=== PATIENT | male | born 2000 | race African-American/Black ===

== ENCOUNTER 2022-07-06 15:53 | Emergency (ER) | payer SELFPAY ==
[2022-07-06 16:07] VITALS: BP 123/65; PULSE 62; RESP 16; TEMP 37.2; O2SAT 100
--- NOTE | 2022-07-06 16:24 | ED.NECK ---
HPI - Neck Pain/Injury General Chief Complaint: Neck Pain/Injury Stated Complaint: Neck pain Time Seen by Provider: 07/06/22 16:24 Source: patient Mode of arrival: ambulatory Limitations: no limitations History of Present Illness HPI Narrative: 21-year-old male presented for complaint of right neck pain, since yesterday. He states he was playing rough with his friends. Woke this morning with more pain. Worse when he turns his head to the right. Denies decreased ROM, numbness, tingling, weakness of the upper extremities. Took Tylenol today. Rates 12/29. Requesting work note. Related Data Allergies Allergy/AdvReac Type Severity Reaction Status Date / Time No Known Allergies Allergy Verified 07/06/22 16:38 Review of Systems Review of Systems: CONSTITUTIONAL: Denies body aches, fever, chills CARDIOVASCULAR: Denies chest pain, palpitations, or edema. RESPIRATORY: Denies cough or dyspnea. SKIN: Denies rash, itching, or wounds. MUSCULOSKELETAL: Denies back pain, joint pain, or myalgia. NEUROLOGIC: Denies headache, numbness, tingling, or weakness. All systems reviewed & are unremarkable except as noted in HPI and below PMFSH Comments At time of signature, I have reviewed and agree with nursing past medical, surgical, social and family history unless otherwise noted. Please see nursing chart for further information. There is no relevant family history pertinent to the presenting complaint Exam Narrative: GENERAL: Well-appearing CHEST: Speaks in full sentences. No respiratory distress. HEART: Regular rate and rhythm. Normal and equal peripheral pulses. MUSC: Bilateral Upper ext's normal strength and sensation, normal range of motion. No vertebral point tenderness. Full ROM to neck. No open wounds; alignment normal, pulse palpable and equal bilaterally, skin warm, dry, pink. Capillary refill less than 3 seconds. SKIN: Warm, dry, no rash. NEURO: Alert and oriented x3. PSYCH: Normal mood and affect Course Course Emergency Course: Patient is aware of diagnosis, understands and agrees to treatment plan. Anticipatory guidance given. Patient agrees to follow-up as directed and is aware of reasons to seek care at the emergency department. Portions of this record may have been created with voice recognition software Level of Care: Express Care Visit Vital Signs Vital signs: Vital Signs Temperature 98.9 F 07/06/22 16:07 Pulse Rate 62 07/06/22 16:07 Respiratory Rate 16 07/06/22 16:07 Blood Pressure 123/65 07/06/22 16:07 Pulse Oximetry 100 07/06/22 16:07 Oxygen Delivery Room Air 07/06/22 16:07 Temperature 98.9 F 07/06/22 16:07 Pulse Rate 62 07/06/22 16:07 Respiratory Rate 16 07/06/22 16:07 Blood Pressure 123/65 07/06/22 16:07 Pulse Oximetry 100 07/06/22 16:07 Oxygen Delivery Room Air 07/06/22 16:07 Reviewed MDM - Neck Pain/Injury MDM Narrative Medical decision making narrative: Neck pain appears musculoskeletal in nature. No indication for imaging. He is well-appearing. Requesting work note. Advised supportive measures and signs/symptoms to go to the ER. Pt is appropriate for outpt treatment and f/u. Differential Diagnosis Differential diagnosis: Likely disc disorder of cervical region, whiplash injury to neck, cervical radiculopathy and strain of neck muscle Discharge Plan Discharge Clinical Impression: Strain of neck muscle Patient Disposition: Home, Self-Care Condition: Stable Instructions: Acute Neck Pain (ED) Additional Instructions: Rest. Avoid pushing, pulling, lifting or anything that worsens the symptoms Tylenol 1000mg every 8 hours as needed You can alternate with ibuprofen 600mg Alternate ice/heat to the site. Lidocaine or salon pas pain patch or use pain cream like icy/hot or biofreeze Follow up with your primary care provider as needed in 1 week Go to the ER for worsening symptoms or concerns. Follow-up/Referrals: PHYSICIAN,CL[facility] FORMER [P
== END 2022-07-06 16:30 | disposition home or self-care (01) ==
PROVIDERS: Emergency Provider Nurse Practitioner Family
DX: S16.1XXA Strain of muscle, fascia and tendon at neck level, initial encounter (principal); Y93.83 Activity, rough housing and horseplay
CPT/HCPCS: 99202; G0463

== ENCOUNTER 2022-11-26 16:49 | Emergency (ER) | payer OTHER, SELFPAY ==
[2022-11-26 16:59] VITALS: BP 120/74; PULSE 63; RESP 18; TEMP 36.7; O2SAT 100
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
== END 2022-11-26 17:23 | disposition home or self-care (01) ==
PROVIDERS: Emergency Provider Nurse Practitioner Family
DX: T20.22XA Burn of second degree of lip(s), initial encounter (principal); T20.10XA Burn of first degree of head, face, and neck, unspecified site, initial encounter; X10.1XXA Contact with hot food, initial encounter
CPT/HCPCS: 99213; G0463

== ENCOUNTER 2023-02-23 16:19 | Emergency (ER) | payer SELFPAY ==
[2023-02-23 16:42] VITALS: BP 140/64; PULSE 61; RESP 16; TEMP 36.8; O2SAT 99
--- NOTE | 2023-02-23 17:45 | ED.URI ---
HPI - URI/Sore Throat General Chief Complaint: Upper Respiratory Infection Stated Complaint: Sore Throat Time Seen by Provider: 02/23/23 17:45 History of Present Illness HPI Narrative: 22-year-old male presented for complaint of sore throat for 3 days. He states he took 3 doses of friends antibiotic note was given for dental abscess. He endorses mild improvement in symptoms, and states the lymph nodes have gone down. He denies associated sinus congestion, headache, nausea, vomiting, fevers or chills. Denies sick contacts. Related Data Allergies Allergy/AdvReac Type Severity Reaction Status Date / Time No Known Allergies Allergy Verified 02/23/23 16:44 Review of Systems Review of Systems: CONSTITUTIONAL: Denies body aches, fever, chills, or sweats. EYES: Denies visual changes, redness, or discharge. ENT: Denies rhinorrhea, congestion, or otalgia. CARDIOVASCULAR: Denies chest pain, palpitations, or edema. RESPIRATORY: Denies dyspnea. GASTROINTESTINAL: Denies abdominal pain, nausea, vomiting, or diarrhea. SKIN: Denies rash, itching, or wounds. MUSCULOSKELETAL: Denies back pain, joint pain, or myalgia. NEUROLOGIC: Denies headache PMFSH Past Medical History Medical History No pertinent past medical history Exam Narrative: GENERAL: mildly Ill-appearing, no acute distress. EYES: conjunctivae clear ENT: Mucous membranes moist. TMs pearly dawson with normal light reflex bilaterally; no tragal tenderness. Oropharynx erythematous Tonsils enlarged 2+ with exudate on left No drooling, no hoarseness, no trismus, uvula midline. No tripod positioning, hot potato voice, or soft palate swelling. NECK: Supple. No lymphadenopathy CHEST: Clear to auscultation, breath sounds equal. No respiratory distress, speaks in full sentences. HEART: Regular rate and rhythm. No murmur heard. SKIN: Warm, dry, no rash. NEURO: Alert and oriented x3. Course Course Emergency Course: Patient is aware of diagnosis, understands and agrees to treatment plan. Anticipatory guidance given. Patient agrees to follow-up as directed and is aware of reasons to seek care at the emergency department. Portions of this record may have been created with voice recognition software Level of Care: Express Care Visit Vital Signs Vital signs: Vital Signs Temperature 98.3 F 02/23/23 16:42 Pulse Rate 61 02/23/23 16:42 Respiratory Rate 16 02/23/23 16:42 Blood Pressure 140/64 02/23/23 16:42 Pulse Oximetry 99 02/23/23 16:42 Oxygen Delivery Room Air 02/23/23 16:42 Temperature 98.3 F 02/23/23 16:42 Pulse Rate 61 02/23/23 16:42 Respiratory Rate 16 02/23/23 16:42 Blood Pressure 140/64 02/23/23 16:42 Pulse Oximetry 99 02/23/23 16:42 Oxygen Delivery Room Air 02/23/23 16:42 MDM - URI/Sore Throat MDM Narrative Medical decision making narrative: strep result reviewed with pt. will treat based on PE and cc. Advise supportive treatments. Patient is appropriate for outpatient treatment and follow-up. Differential Diagnosis Differential diagnosis: Likely upper respiratory infection, viral infection and pharyngitis Lab Data Labs: Strep Screen Presumptive Negative *(Reference Range: Negative)* Discharge Plan Discharge Clinical Impression: Pharyngitis Patient Disposition: Home, Self-Care Condition: Stable Instructions: Antibiotic Form, Strep Throat (ED) Additional Instructions: - Take the antibiotic as directed. Fever and sore throat typically resolve within one to three days. Most patients can return to work, after 12 to 24 hours of antibiotic therapy, provided you are fever free and otherwise well. -Eat and drink things that are easy to swallow, like soft foods, cool liquids, tea with honey, or popsicles . -Salt water gargles and/or may use topical anesthetic ( Chloraseptic
== END 2023-02-23 17:58 | disposition home or self-care (01) ==
PROVIDERS: Emergency Provider Nurse Practitioner Family
DX: J02.9 Acute pharyngitis, unspecified (principal)
CPT/HCPCS: 87081; 87880; 99213; G0463

== ENCOUNTER 2024-01-29 18:09 | Emergency (ER) | payer SELFPAY ==
[2024-01-29 18:42] VITALS: BP 148/83; PULSE 86; RESP 18; TEMP 36.9; O2SAT 100
--- NOTE | 2024-01-29 20:20 | ED.GENADULT ---
HPI - General Adult General Chief complaint: Unspecified Stated complaint: bump on lip Time Seen by Provider: 01/29/24 20:12 History of Present Illness HPI narrative: Patient is a 23-year-old gentleman presents emergency department chief complaint of bump on the right lip. Patient states that for a while he has had a bump that is raised on the right leg versus nonpainful reports no drainage tempted to pop it but reports that it still feels irritated after trying to pop it. The patient denies purulent drainage denies vesicles or blisters Related Data Allergies Allergy/AdvReac Type Severity Reaction Status Date / Time No Known Allergies Allergy Verified 01/29/24 19:48 Review of Systems Review of Systems: A 10 system review of systems was completed on the patient and is negative except for what is stated in the HPI. Nursing and ancillary documentation was reviewed. [facility] Past Medical History Medical History No pertinent past medical history Exam Narrative: GENERAL: Well-appearing, well-nourished, and in no acute distress. HEAD: Normocephalic, atraumatic. EYES: PERRLA and EOMI. ENT: Nares clear, no rhinorrhea or epistaxis. Mucous membranes moist. There is a small raised area in the right upper lip NECK: Supple. CHEST: Clear to auscultation. No respiratory distress. HEART: Regular rate and rhythm. No murmur heard. Normal peripheral pulses. ABDOMEN: Soft, nontender, nondistended, normal active bowel sounds. EXTREMITIES: Normal range of motion. No edema. SKIN: Warm, dry, no rash. NEURO: No focal deficits. Alert and oriented x3. PSYCH: Normal mood and affect. Course Vital Signs Vital signs: Vital Signs Temperature 36.9 C 01/29/24 18:42 Pulse Rate 86 01/29/24 18:42 Respiratory Rate 18 01/29/24 18:42 Blood Pressure 148/83 H 01/29/24 18:42 Pulse Oximetry 100 01/29/24 18:42 Oxygen Delivery Room Air 01/29/24 18:42 Temperature 36.9 C 01/29/24 18:42 Pulse Rate 86 01/29/24 18:42 Respiratory Rate 18 01/29/24 18:42 Blood Pressure 148/83 H 01/29/24 18:42 Pulse Oximetry 100 01/29/24 18:42 Oxygen Delivery Room Air 01/29/24 18:42 Medical Decision Making MDM Narrative Medical decision making narrative: Differential diagnosis includes folliculitis, cellulitis There is no signs of vesicular lesions with concern for herpes. Patient shows no signs of abscess no signs of necrotizing fasciitis no signs of Ralf's angina. Patient was started on Keflex and will be discharged home to follow-up with primary care Vital Signs Vital Signs: Vital Signs Temperature 36.9 C 01/29/24 18:42 Pulse Rate 86 01/29/24 18:42 Respiratory Rate 18 01/29/24 18:42 Blood Pressure 148/83 H 01/29/24 18:42 Pulse Oximetry 100 01/29/24 18:42 Oxygen Delivery Room Air 01/29/24 18:42 Temperature 36.9 C 01/29/24 18:42 Pulse Rate 86 01/29/24 18:42 Respiratory Rate 18 01/29/24 18:42 Blood Pressure 148/83 H 01/29/24 18:42 Pulse Oximetry 100 01/29/24 18:42 Oxygen Delivery Room Air 01/29/24 18:42 Discharge Plan Discharge Clinical Impression: Cellulitis of lip Patient Disposition: Home, Self-Care Condition: Stable Instructions: Antibiotic Form, Cellulitis (ED) Prescriptions: New cephalexin 500 mg capsule 500 mg PO QID 7 Days Qty: 28 0RF No Action amoxicillin 500 mg tablet 1,000 mg PO DAILY 10 Days Qty: 20 0RF Follow-up/Referrals: PHYSICIAN,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
== END 2024-01-29 20:39 | disposition home or self-care (01) ==
PROVIDERS: Emergency Provider Emergency Medicine
DX: K13.0 Diseases of lips (principal)
CPT/HCPCS: 99283

== ENCOUNTER 2024-02-04 15:26 | Emergency (ER) | payer SELFPAY ==
[2024-02-04 15:32] VITALS: BP 149/82; PULSE 87; RESP 16; TEMP 37.4; O2SAT 100
--- NOTE | 2024-02-04 15:55 | ED.SKABFB ---
HPI - Skin/Abscess/Foreign Bdy General Chief complaint: Skin/Abscess/Foreign Body Stated complaint: bump on lip Time Seen by Provider: 02/04/24 15:28 Source: patient Mode of arrival: ambulatory Limitations: no limitations History of Present Illness HPI narrative: Benny Ramirez is a 23-year-old male patient presenting to the clinic today with complaints of a bump to his right upper lip. He reports that this has been going on for approximately 2 months. States he was messing with the bump in a pop. Has mild pain to the affected area. He denies any numbness, tingling, or burning sensation to the area Related Data Allergies Allergy/AdvReac Type Severity Reaction Status Date / Time No Known Allergies Allergy Verified 02/04/24 15:37 Review of Systems Review of Systems: Pertinent positives per HPI. Patient denies any fever, chills, rash, headache, visual changes, dizziness, cough, runny nose, sore throat, shortness of breath, chest pain, palpitations, nausea, vomiting, diarrhea, constipation, abdominal pain, or any urinary issues. [facility] Past Medical History Medical History No pertinent past medical history Comments At the time of my signature, I reviewed and agree with the nursing past medical, surgical, social, and family history. There is no relevant family history pertinent to the patient complaint. Exam Narrative: General: Well-developed, well nourished, in no apparent distress Head: Normocephalic, atraumatic Eyes: Pupils equally round and reactive to light bilaterally, EOM intact, sclera and conjunctive clear, no discharge, lids normal Ears: TMs intact and clear, ear canals clear, no drainage, grossly hearing normal. Nose: Nares patent, no discharge, no inflammation, no sinus tenderness. Mouth: Oropharynx without lesions or masses, good dentition, MMM. Small red popped pustule area to the right upper lip without induration. Neck: Supple, trachea midline, no enlargement of anterior or posterior cervical nodes, no thyroid masses or goiter palpable. Cardio: Regular rate and rhythm, s1 and s2 normal, no murmur appreciated. Resp: Clear to auscultation bilaterally anteriorly and posteriorly, no rhonchi, rales, wheezing or rubs Course Course Emergency Course: Portions of this record may have been created with voice recognition software. Level of Care: Express Care Visit Vital Signs Vital signs: Vital Signs Temperature 37.4 C 02/04/24 15:32 Pulse Rate 87 02/04/24 15:32 Respiratory Rate 16 02/04/24 15:32 Blood Pressure 149/82 H 02/04/24 15:32 Pulse Oximetry 100 02/04/24 15:32 Oxygen Delivery Room Air 02/04/24 15:32 Temperature 37.4 C 02/04/24 15:32 Pulse Rate 87 02/04/24 15:32 Respiratory Rate 16 02/04/24 15:32 Blood Pressure 149/82 H 02/04/24 15:32 Pulse Oximetry 100 02/04/24 15:32 Oxygen Delivery Room Air 02/04/24 15:32 Vital signs reviewed MDM - Skin/Abscess/Foreign Bdy MDM Narrative Medical decision making narrative: At the time of visit patient is resting comfortably on the exam table. Patient appears to be nontoxic. Plan: I suspect patient has a superficial lip infection. Prescription for mupirocin cream was sent to the pharmacy. Supportive measures were discussed with the patient and they voiced understanding discharge instructions and agrees to treatment plan. Return precautions reviewed Differential Diagnosis Differential diagnosis: Likely abscess of skin or subcutaneous tissue, herpes zoster, cellulitis and impetigo Discharge Plan Discharge Clinical Impression: Blister of lip with infection Qualifiers: Encounter type: initial encounter Qualified Code(s): S00.521A - Blister (nonthermal) of lip, initial encounter Patient Disposition: Home, Self-Care Condition: Stable Instructions: Antibiotic Form Additional Instructions: I suspect you may have a very superficial lip infe
== END 2024-02-04 16:07 | disposition home or self-care (01) ==
PROVIDERS: Emergency Provider Nurse Practitioner Family
DX: S00.521A Blister (nonthermal) of lip, initial encounter (principal); X58.XXXA Exposure to other specified factors, initial encounter
CPT/HCPCS: 99213; G0463

== ENCOUNTER 2024-02-20 18:09 | Emergency (ER) | payer SELFPAY ==
--- NOTE | 2024-02-20 18:24 | ED.URI ---
HPI - URI/Sore Throat General Chief Complaint: Upper Respiratory Infection Stated Complaint: Sore Throat Time Seen by Provider: 02/20/24 18:30 Source: patient Mode of arrival: ambulatory Limitations: no limitations History of Present Illness HPI Narrative: Eligio is a 23-year-old male patient presenting to the clinic today with complaints of a sore throat that is been going on for 1 week. He reports no fever, chills, body aches, cough, or runny nose. No known exposure to anyone with strep MD elicited complaint: sore throat Related Data Home Medications Medication Instructions Recorded Confirmed No Home Medications 02/20/24 02/20/24 Allergies Allergy/AdvReac Type Severity Reaction Status Date / Time No Known Allergies Allergy Verified 02/20/24 18:18 Review of Systems Review of Systems: Pertinent positives per HPI. Patient denies any fever, chills, rash, headache, visual changes, dizziness, cough, shortness of breath, chest pain, palpitations, nausea, vomiting, diarrhea, constipation, abdominal pain, or any urinary issues. PMFSH Past Medical History Medical History No pertinent past medical history Comments At the time of my signature, I reviewed and agree with the nursing past medical, surgical, social, and family history. There is no relevant family history pertinent to the patient complaint. Exam Narrative: General: Well-developed, well nourished, in no apparent distress Head: Normocephalic, atraumatic Eyes: Pupils equally round and reactive to light bilaterally, EOM intact, sclera and conjunctive clear, no discharge, lids normal Ears: TMs intact and clear, ear canals clear, no drainage, grossly hearing normal. Nose: Nares patent, no discharge, no inflammation, no sinus tenderness. Mouth: Oral pharynx red with bilateral tonsillar enlargement and exudate to the tonsils without masses, good dentition, MMM. Neck: Supple, trachea midline, no enlargement of anterior or posterior cervical nodes, no thyroid masses or goiter palpable. Cardio: Regular rate and rhythm, s1 and s2 normal, no murmur appreciated. Resp: Clear to auscultation bilaterally, no rhonchi, rales, wheezing or rubs Course Course Emergency Course: Portions of this record may have been created with voice recognition software. Level of Care: Express Care Visit Vital Signs Vital signs: Vital signs reviewed MDM - URI/Sore Throat MDM Narrative Medical decision making narrative: At the time of visit patient is resting comfortably on the exam table. Patient appears to be nontoxic. Labs: Strep test was negative in the clinic today. Plan: I suspect patient has pharyngitis. Work note was given. We will send strep for culture. Supportive measures were discussed with the patient and they voiced understanding discharge instructions and agrees to treatment plan. Return precautions reviewed Differential Diagnosis Differential diagnosis: Likely upper respiratory infection, otitis media, sinusitis, viral infection, bronchitis, influenza, pharyngitis and other (COVID) Discharge Plan Discharge Clinical Impression: Pharyngitis Patient Disposition: Home, Self-Care Condition: Stable Instructions: Antibiotic Form, Pharyngitis (ED) Additional Instructions: Strep test was negative in the clinic today. We will send strep for culture if this comes back positive we will contact him place you on antibiotics at that time. Increase fluids and stay well hydrated Tylenol/motrin for pain/fever Flonase and OTC antihistamines as directed Vicks vapor rub to open sinuses Sinus rinses for congestion Cepacol spray, cough drops, throat lozenges, warm tea with honey/lemon, gargle salt water to soothe throat BRAT diet for diarrhea Clear liquids x 24 hours then advance as tolerated for nausea/vomiting Go to the ED if you develop a worsening in your condition- high feve
[2024-02-20 18:25] VITALS: BP 124/84; PULSE 85; RESP 18; TEMP 37.9; O2SAT 99
== END 2024-02-20 18:50 | disposition home or self-care (01) ==
PROVIDERS: Emergency Provider Nurse Practitioner Family
DX: J02.9 Acute pharyngitis, unspecified (principal)
CPT/HCPCS: 87081; 87880; 99213; G0463

== ENCOUNTER 2024-07-23 17:39 | Emergency (ER) | payer SELFPAY ==
[2024-07-23 17:47] VITALS: BP 130/83; PULSE 73; RESP 20; TEMP 37.4; O2SAT 100
--- NOTE | 2024-07-23 17:52 | ED.EYEPROB ---
HPI - Eye Problem General Chief complaint: Eye Problems Stated complaint: Eyes Irritation Time Seen by Provider: 07/23/24 17:53 Source: patient Mode of arrival: ambulatory Limitations: no limitations History of Present Illness HPI Narrative: Patient is a 23 year male who presents with bilateral eye irritation since yesterday. Patient states eyes are itching and red with mild watering. Denies any vision changes or eye being crusted shut. Denies any exposure to chemicals or foreign bodies denies. Related Data Allergies Allergy/AdvReac Type Severity Reaction Status Date / Time No Known Allergies Allergy Verified 02/20/24 18:18 Review of Systems Review of Systems: All systems reviewed & are unremarkable except as noted in HPI and below Constitutional: Constitutional: Denies body ache(s), Denies fever(s), Denies headache(s), Denies malaise and Denies weakness Eyes: Eyes: Denies blurry vision, Reports eye discharge, Reports irritation, Reports itchy eyes, Denies loss of vision and Denies eye pain ENT: Denies otalgia, Denies headache(s), Denies nasal discharge, Denies sinus pain and Denies sore throat Cardiovascular: Cardiovascular: Denies chest pain, Denies irregular heart rhythm and Denies dyspnea Respiratory: Respiratory: Denies dyspnea Gastrointestinal: Gastrointestinal: Denies abdominal pain, Denies diarrhea, Denies nausea and Denies vomiting Musculoskeletal: Musculoskeletal: Denies back pain, Denies myalgias and Denies arthralgias Integumentary/Breasts: Skin/Breast: Denies pruritus and Denies rash Neurologic: Denies headache(s), Denies loss of vision and Denies weakness Psychiatric: Psychiatric: Reports no additional psychiatric complaints Allergic/Immunologic: Allergic/Immunologic: Reports itchy eyes PMFSH Past Medical History Medical History No pertinent past medical history Comments At time of signature, agree with nursing past medical, surgical, social and family history. There is no relevant family history pertinent to the presenting complaint. Exam Const: General: cooperative, healthy appearing, comfortable, no acute distress and well nourished Nutritional Appearance: well nourished Orientation/consciousness: patient oriented x3 Limitations: no limitations HENMT: Head: normal to inspection, normocephalic and atraumatic Ears: external ears normal Face/Nose/Sinus: Normal external nose present, normal facial exam and face symmetric Face and sinus: normal facial exam and face symmetric Mouth: Yes lip normal Eyes: General: appearance normal, both eyes and all related structures Visual Molina: normal visual molina by confrontation Alignment and Position: alignment normal and position normal Periorbital: periorbital findings normal Eyelids: eyelids normal Conjunctivae: conjunctival abnormality bilateral conjunctival injection diffuse and discharge mucoid Sclera: scleral abnormality bilateral scleral injection diffuse Pupils: Equal, round and reactive pupils present EOM: EOMs intact bilaterally Direct Ophthalmoscopy: no photophobia Other: No hyphema, no foreign body under the lids. Neck: Neck: normal visual inspection, full ROM, no lymphadenopathy and no meningeal signs Chest: Chest palpation & inspection: normal inspection of the chest Resp: Effort & Inspection: normal respiratory effort and able to speak in complete sentences Auscultation: clear to auscultation bilaterally Cardio: Rate: regular rate Rhythm: regular rhythm Heart sounds: S1 normal heart sound present and S2 normal heart sound present GI: Inspection: normal to inspection Skin: General skin exam: normal color and no rashes or lesions noted Neuro: General: patient oriented x3, moves all extremities and no meningeal signs Cranial nerves: Yes Equal, round and reactive pupils present Speech: normal speech Gait exam (Neuro): Normal gait present Extrem: General: norm
== END 2024-07-23 18:21 | disposition home or self-care (01) ==
PROVIDERS: Emergency Provider Nurse Practitioner Family
DX: H10.89 Other conjunctivitis (principal)
CPT/HCPCS: 99213; G0463

== ENCOUNTER 2024-08-24 18:56 | Emergency (ER) | payer OTHER, SELFPAY ==
--- NOTE | 2024-08-24 19:01 | ED_ITS ---
HPI - Wound/Laceration General Chief Complaint: Wound/Laceration Stated Complaint: right foot cut at work Time Seen by Provider: 08/24/24 19:13 Source: patient, RN notes reviewed and old records reviewed Mode of arrival: ambulatory Limitations: no limitations History of Present Illness HPI narrative: 23-year-old male presents to the [facility] with a cut to his right foot. top of foot. Patient dropped a knife went through the whole on his crock and into his foot. Currently has a Steri-Strip in place. Injury occurred about 2:00 p.m. today. Unknown last tetanus, patient is declining Related Data Allergies Allergy/AdvReac Type Severity Reaction Status Date / Time No Known Allergies Allergy Verified 08/24/24 19:00 Review of Systems Review of Systems: All systems reviewed & are unremarkable except as noted in HPI and below Constitutional: Constitutional: Reports no additional constitutional complaints ENT: Reports system reviewed and no additional complaints, except as documente d Cardiovascular: Cardiovascular: Reports no additional cardiovascular complaints, Denies chest pain and Denies dyspnea Respiratory: Respiratory: Reports no additional respiratory complaints, Denies chest congestion, Denies cough and Denies dyspnea Gastrointestinal: Gastrointestinal: Reports no additional gastrointestinal complaints, Denies abdominal pain, Denies nausea and Denies vomiting Musculoskeletal: Musculoskeletal: Reports no additional musculoskeletal complaints Integumentary/Breasts: Skin/Breast: Reports as per HPI and Reports wounds PMFSH Past Medical History Medical History No pertinent past medical history Comments At the time of my signature, I reviewed and agree with the nursing past medical, surgical, social, and family history. There is no relevant family history pertinent to the patient complaint. Exam Const: General: cooperative, healthy appearing, comfortable, no acute distress, well developed, alert and well nourished Nutritional Appearance: well nourished Orientation/consciousness: patient oriented x3 Limitations: no limitations HENMT: Head: normal to inspection Ears: hearing grossly normal bilaterally and external ears normal Face/Nose/Sinus: Normal external nose present, normal facial exam and face symmetric Face and sinus: normal facial exam and face symmetric Eyes: General: appearance normal, both eyes and all related structures Alignment and Position: alignment normal Periorbital: periorbital findings normal Neck: Neck: normal visual inspection, full ROM, no lymphadenopathy and no meningeal signs Chest: Chest palpation & inspection: normal inspection of the chest Resp: Effort & Inspection: normal respiratory effort and able to speak in complete sentences Cardio: Rate: regular rate Skin: General skin exam: normal color and no rashes or lesions noted Lesions: no lesions Rashes: no rashes Other: 0.7cm linear superficial wound to the do rsal aspect right foot above the 1st metatarsal. Neuro: General: patient oriented x3, gait normal, tone normal, moves all extremities and no meningeal signs Cognition (Neuro): normal cognition Speech: normal speech Gait exam (Neuro): Normal gait present Extrem: General: normal to inspection, full ROM, capillary refill normal and normal gait Ankle/foot/toe images: 1. 0.7 cm clean, linear, superficial laceration. Bleeding controlled. Psych: Appearance: grossly normal and well kempt Mental Status: mental status grossly normal Speech and movement: Normal speech and movement present and Clear speech present Affect: normal affect Attitude: cooperative Course Course Level of Care: Express Care Visit Vital Signs Vital signs: Vital Signs Temperature 97.6 F 08/24/24 19:12 Pulse Rate 67 08/24/24 19:12 Respiratory Rate 16 08/24/24 19:12 Blood Pressure 130/73 08/24/24 19:12 Pulse Oximetry 99 08/24/24 19:12 Oxygen Delivery Room Air 08/24/24 19:12 Temperature 97.6 F 08/24/24 19:12 Pulse Rate 67 08/24/24 19:12 Respiratory Rate 16 08/24/24 19:12 Blood Pressure 130/73 08/24/24 19:12 Pulse Oximetry 99 08/24/24 19:12 Oxygen Delivery Room Air 08/24/24 19:12 Reviewed Procedures Laceration Laceration 1: Date: 08/24/24 Time: 19:20 Site: lower extremity Side (If applicable): right Size (cm): 0.7 Description: linear Depth: simple, single layer Pre-repair: wound explored and irrigated (100mls) ====== Skin Level ====== Skin layer closed with: dermabond ====== Subcutaneous Layer ====== ====== Muscle Layer ====== ====== Tendon Layer ====== Dressing: Area cleaned with saline and wound cleanser. Irrigated with 100 mils of normal saline. Apply Dermabond Patient tolerated well MDM - Wound/Laceration MDM Narrative Medical decision making narrative: Patient sitting comfortably in exam room. Nontoxic, vitals stable. Patient presents with a small laceration to the top of his foot cause when he dropped a knife. Occurred approximately 2:00 p.m.. Patient had area cleaned. Steri-Strips had been applied. Has range of motion all 5 toes with sensation intact. Capillary refill under 2 seconds it is Patient wound cleaned, Dermabond wants apply. Patient appropriate for outpatient treatment and follow-up Discharge instructions reviewed with patient, as well as provided in writing per nursing staff. The instructions also include specific and strict return/GO TO THE ER as well as f/u information. All questions have been answered, and the patient deny any further questions with discharge and discharge plan. Some parts of this dictation were generated by voice recognition software and may contain typographical and/or grammatical inaccuracies. Differential Diagnosis Differential diagnosis: Likely laceration, abrasion and avulsion of skin Critical Care Time Critical Care Time Critical Care Time: No Discharge Plan Discharge Clinical Impression: Laceration Patient Disposition: Home, Self-Care Condition: Stable Instructions: Antibiotic Form, Laceration (ED) Additional Instructions: Wash area twice a day, warm soapy water. Follow-up with primary care provider The glue that we applied may start peeling off in the next 5 days. This is normal Worsening symptoms go directly to emergency room Patient Language: Zambian Follow-up/Referrals: PHYSICIAN,MONOTYPE MACHINIST [Primary Care Provider] - Time of Disposition: 19:29
[2024-08-24 19:12] VITALS: BP 130/73; PULSE 67; RESP 16; TEMP 36.4; O2SAT 99
== END 2024-08-24 19:36 | disposition home or self-care (01) ==
PROVIDERS: Emergency Provider Nurse Practitioner
DX: S91.311A Laceration without foreign body, right foot, initial encounter (principal); W26.0XXA Contact with knife, initial encounter
CPT/HCPCS: 12001; 99212; G0463

== ENCOUNTER 2024-11-27 10:49 | Emergency (ER) | payer SELFPAY ==
--- NOTE | 2024-11-27 10:53 | ED.URI ---
HPI - URI/Sore Throat General Chief Complaint: Upper Respiratory Infection Stated Complaint: Fever/Bodyaches Time Seen by Provider: 11/27/24 10:54 Source: patient Mode of arrival: ambulatory Limitations: no limitations History of Present Illness HPI Narrative: Eligio is a 23-year-old male patient presenting to the clinic today with complaints of fever, chills, cough, and body aches x2 days. He reports no chest pain or shortness of breath. Denies any nasal congestion or sore throat. Cough is nonproductive. MD elicited complaint: fever, cough and nasal congestion Related Data Home Medications ?Medication ?Instructions ?Recorded ?Confirmed ?Last Taken ?Type No Home Medications 11/27/24 11/27/24 Unknown History Allergies Allergy/AdvReac Type Severity Reaction Status Date / Time No Known Allergies Allergy Verified 11/27/24 10:57 Review of Systems Review of Systems: Pertinent positives per HPI. Patient denies any fever, chills, rash, headache, visual changes, dizziness, shortness of breath, chest pain, palpitations, nausea, vomiting, diarrhea, constipation, abdominal pain, or any urinary issues. [facility] Past Medical History Medical History No pertinent past medical history Comments At the time of my signature, I reviewed and agree with the nursing past medical, surgical, social, and family history. There is no relevant family history pertinent to the patient complaint. Exam Narrative: General: Well-developed, well nourished, in no apparent distress Head: Normocephalic, atraumatic Eyes: Pupils equally round and reactive to light bilaterally, EOM intact, sclera and conjunctive clear, no discharge, lids normal Ears: TMs intact and congested, ear canals clear, no drainage, grossly hearing normal. Nose: Nares patent, clear nasal discharge, no inflammation, no sinus tenderness. Mouth: Oral pharynx red without lesions or masses, good dentition, MMM. Postnasal drip Neck: Supple, trachea midline, no enlargement of anterior or posterior cervical nodes, no thyroid masses or goiter palpable. Cardio: Regular rate and rhythm, s1 and s2 normal, no murmur appreciated. Resp: Clear to auscultation bilaterally, no rhonchi, rales, wheezing or rubs Course Course Emergency Course: Portions of this record may have been created with voice recognition software. Level of Care: Express Care Visit Vital Signs Vital signs: Vital Signs Temperature 38.0 C H 11/27/24 11:05 Pulse Rate 97 11/27/24 11:05 Respiratory Rate 15 11/27/24 11:05 Blood Pressure 125/67 11/27/24 11:05 Pulse Oximetry 99 11/27/24 11:05 Oxygen Delivery Room Air 11/27/24 11:05 Temperature 38.0 C H 11/27/24 11:05 Pulse Rate 97 11/27/24 11:05 Respiratory Rate 15 11/27/24 11:05 Blood Pressure 125/67 11/27/24 11:05 Pulse Oximetry 99 11/27/24 11:05 Oxygen Delivery Room Air 11/27/24 11:05 Vital signs reviewed MDM - URI/Sore Throat MDM Narrative Medical decision making narrative: At the time of visit patient is resting comfortably on the exam table. Patient appears to be nontoxic. Labs: COVID and influenza testing was performed. COVID and influenza testing was negative. Plan: I suspect patient has viral syndrome. Supportive measures were discussed with the patient and they voiced understanding discharge instructions and agrees to treatment plan. Return precautions reviewed Differential Diagnosis Differential diagnosis: Likely upper respiratory infection, otitis media, sinusitis, viral infection, bronchitis, influenza, pharyngitis and other (COVID) Discharge Plan Discharge Clinical Impression: Acute viral syndrome Patient Disposition: Home, Self-Care Condition: Stable Instructions: Antibiotic Form, Viral Syndrome (ED) Additional Instructions: COVID and influenza testing was negative in the clinic today I suspect you have a viral illness. No sign bacterial infection in the clinic today. Increase fluids and stay well hydrated Tylenol/motrin for pain/fever Flonase and OTC antihistamines as directed Vicks vapor rub to open sinuses Sinus rinses for congestion Cepacol spray, cough drops, throat lozenges, warm tea with honey/lemon, gargle salt water to soothe throat BRAT diet for diarrhea Clear liquids x 24 hours then advance as tolerated for nausea/vomiting Go to the ED if you develop a worsening in your condition- high fever not controlled by Tylenol or Motrin, dehydration, weakness, lethargy, shortness of breath, or chest pain. Follow up with your PCP in 3-5 days if symptoms persist. Patient Language: Georgian Prescriptions: No Action No Home Medications Follow-up/Referrals: PHYSICIAN,ROLLER SKATE ASSEMBLER [Primary Care Provider] - Stand Alone Forms: Work/School Release IP Time of Disposition: 11:18 Quality NIHSS Nursing Documentation ED NIHSS nursing documentation: reviewed/agree
[2024-11-27 11:05] VITALS: BP 125/67; PULSE 97; RESP 15; TEMP 38; O2SAT 99
[2024-11-27 11:21] LABS: EDCOVIDSCREEN Negative (Negative); EDINFLUASCREEN Negative (Negative); EDINFLUBSCREEN Negative (Negative)
== END 2024-11-27 11:38 | disposition home or self-care (01) ==
PROVIDERS: Emergency Provider Nurse Practitioner Family
DX: B34.9 Viral infection, unspecified (principal); Z20.822 Contact with and (suspected) exposure to COVID-19
CPT/HCPCS: 87426; 87804; 99212; G0463

== ENCOUNTER 2025-09-29 19:37 | Emergency (ER) | payer SELFPAY ==
--- NOTE | ~2025-09-29 | XR_ITS ---
EXAMINATION: XR foot RT min 3V DATE: 09/29/2025 19:55 INDICATION: Lateral right foot pain. Trauma. TECHNIQUE: 3 views of the right foot were obtained. COMPARISON: None. FINDINGS: No acute fracture of the right foot is noted, especially on the lateral plate. Soft tissue swelling of mild degree on the lateral aspect. IMPRESSION: 1. No acute fracture. Mild soft tissue swelling on the lateral aspect of the foot. Repeat x-rays suggested after a few days if symptoms are localized and persistent. Reviewed, dictated and finalized at location [facility] IMPRESSION: 1. No acute fracture. Mild soft tissue swelling on the lateral aspect of the fo ot. Repeat x-rays suggested after a few days if symptoms are localized and pers istent.
[2025-09-29 19:44] VITALS: BP 131/89; PULSE 94; RESP 18; TEMP 37.7; O2SAT 100
[2025-09-29] MEDS: IBUPROFEN 400 MG TABLET 800 MG PO (20:00)
--- NOTE | 2025-09-29 20:01 | ED_ITS ---
HPI - Extremity Injury (Lower) General Chief Complaint: Extremity Injury, Lower Stated Complaint: right foot injury Time Seen by Provider: 09/29/25 19:45 Source: patient Mode of arrival: ambulatory Limitations: no limitations History of Present Illness HPI Narrative: Eligio is a 24-year-old male patient presenting to the clinic today with complaints of right lateral foot pain since 3:00 p.m. today. He reports he was stepping out of the [employer] truck while working and stepped into a ditch and rolled his foot. States he is unable to walk on his foot due to the pain. Rates pain 10/10 currently. [place] some pops to his foot when he rolled it. Has not taken any medications for pain today. Related Data Home Medications ?Medication ?Instructions ?Recorded ?Confirmed ?Last Taken ?Type No Home Medications 11/27/24 09/29/25 U zackary History Allergies Allergy/AdvReac Type Severity Reaction Status Date / Time No Known Allergies Allergy Verified 09/29/25 19:55 Review of Systems Review of Systems: Pertinent positives per HPI. Patient denies any fever, chills, rash, headache, visual changes, dizziness, cough, runny nose, sore throat, shortness of breath, chest pain, palpitations, nausea, vomiting, diarrhea, constipation, abdominal pain, or any urinary issues. [facility] Past Medical History Medical History No pertinent past medical history Comments At the time of my signature, I reviewed and agree with the nursing past medical, surgical, social, and family history. There is no relevant family history pertinent to the patient complaint. Exam Narrative: General: Well-developed, well nourished, in no apparent distress Head: Normocephalic, atraumatic. Cardio: Regular rate and rhythm, s1 and s2 normal, no murmur appreciated. Resp: Clear to auscultation bilaterally, no rhonchi, rales, wheezing or rubs. Musculoskeletal: No deformity, tender to palpation over the lateral 4th and 5th metatarsals, pain with valgus and varus testing, mild pain with dorsal flexion and plantar flexion against resistance, grossly normal range of motion, muscle strength strong and equal, peripheral pulse strong, no edema, no cyanosis, nor mal gait and station Course Course Level of Care: Express Care Visit Vital Signs Vital signs: Vital Signs Temperature 37.7 C H 09/29/25 19:44 Pulse Rate 94 09/29/25 19:44 Respiratory Rate 18 09/29/25 19:44 Blood Pressure 131/89 09/29/25 19:44 Pulse Oximetry 100 09/29/25 19:44 Oxygen Delivery Room Air 09/29/25 19:44 Temperature 37.7 C H 09/29/25 19:44 Pulse Rate 94 09/29/25 19:44 Respiratory Rate 18 09/29/25 19:44 Blood Pressure 131/89 09/29/25 19:44 Pulse Oximetry 100 09/29/25 19:44 Oxygen Delivery Room Air 09/29/25 19:44 MDM MDM Narrative Medical decision making narrative: At the time of visit patient is resting comfortably on the exam table. Patient appears to be nontoxic. Complaints of right lateral foot pain since 3:00 p.m. today. He reports he was stepping out of the [employer] truck while working and stepped into a ditch and rolled his foot. States he is unable to walk on his foot due to the pain. Rates pain 10/10 current [place] some pops to his foot when he rolled it. Has not taken any medications for pain today. On exam there is no obvious deformity, tender to palpation over the lateral 4th and 5th metatarsals, pain with valgus and varus testing, mild pain with dorsal flexion and plantar flexion against resistance, grossly normal range of motion. X-ray of the right foot and ibuprofen 800 mg ordered. Diagnostics: X-ray of the right foot was performed and negative for any fracture or malalignment. Plan: I suspect patient has a right foot sprain. Ice pack and Molina wrap was given to the patient. Molina wrap was applied and sensation, circulation, and motion within normal limits,. Supportive measures were discussed with the patient and they voiced understanding discharge instructions and agrees to treatment plan. Return precautions reviewed Differential Diagnosis Differential Diagnosis: Differential diagnostic considerations for lower extremity injury include ankle sprain/strain, acute internal derangement of knee, fracture of femur, fracture of hip, puncture wound of foot, fracture of toe, fracture of ankle, tendon rupture (achilles/patellar/quadriceps). Foot sprain, metatarsal fracture Imaging Data Radiologist's impression: ITS Impressions Foot X-Ray 12/09/25 20:03 IMPRESSION: 1. No acute fracture. Mild soft tissue swelling on the lateral aspect of the foot. Repeat x-rays suggested after a few days if symptoms are localized and persistent. Discharge Plan Discharge Clinical Impression: Foot sprain Qualifiers: Encounter type: initial encounter Laterality: right Qualified Code(s): S93.601A - Unspecified sprain of right foot, initial encounter Patient Disposition: Home Condition: Stable Instructions: Antibiotic Form, Foot Sprain (ED) Additional Instructions: X-rays are negative for any acute fracture or malalignment of the right foot. Rest, ice, elevate, and wear molina wrap as directed Tylenol/motrin for pain as discussed. Gradually bear weight No running or sports until healed. Follow up with your PCP if symptoms persist more than 1 week. Patient Language: Tajik Prescriptions: No Action No Home Medications Follow-up/Referrals: PHYSICIAN,ELECTRICAL POWER ENGINEER [Primary Care Provider, Internal Medicine] Stand Alone Forms: Work/School Release IP Time of Disposition: 20:08 Quality NIHSS Nursing Documentation ED NIHSS nursing documentation: reviewed/agree
== END 2025-09-29 20:15 | disposition home or self-care (01) ==
PROVIDERS: Emergency Provider Nurse Practitioner Family
DX: S93.601A Unspecified sprain of right foot, initial encounter (principal); X50.9XXA Other and unspecified overexertion or strenuous movements or postures, initial encounter; Y99.0 Civilian activity done for income or pay
CPT/HCPCS: 73630; 99213; A9270; G0463